=== PATIENT | male | born 1990 | race Hispanic/Latino ===

== ENCOUNTER 2016-04-03 09:37 | Emergency (ER) ==
[2016-04-03 09:44] VITALS: BP 130/73
[2016-04-03] MEDS ORDERED: DECADRON IM ONE (11:00)
[2016-04-03] MEDS ORDERED: MOTRIN PO ONE (11:01)
--- NOTE | 2016-04-03 11:08 | PROVIDER DOCUMENTATION ---
HPI-General Adult - General Chief Complaint: Flu Symptoms Stated Complaint: N/V/D FEVER Time Seen by Provider: 04/03/16 10:51 Source: patient Allergies/Adverse Reactions: Patient Allergies Allergy/AdvReac Type Severity Reaction Status Date / Time No Known Allergies Allergy Verified 02/22/16 13:12 - History of Present Illness -Gen Adult Nature of Presenting Problems: Pt is 25 y/o M presents to the ED with F and cough. Pt states the cough has been present for two days. Pt states work sent him home due to cough and F Location of Pain/Injury: reports: generalized Pain Radiation: reports: no radiation Quality of Pain: reports: aching Severity: reports: mild Onset/Duration: reports: 2 days ago Timing: reports: still present, intermittent Context/Activities at Onset: reports: light activity Modifying Factors: improves with: nothing Associated Symptoms: reports: cough, fever/chills (F), muscle aches. denies: loss of appetite, nausea, shortness of breath, weakness Similar Symptoms Previously?: Yes Recently seen or treated by another doctor?: No Review of Systems - Adult - REVIEW OF SYSTEMS - ADULT Constitutional: reports: fever. denies: chills, fatique Eyes: denies: blurred vision, double vision Ears, Nose, Mouth & Throat: denies: ear pain, nose pain, throat pain Cardiovascular: denies: chest pain, heart murmur, irregular heart rate Respiratory: reports: cough. denies: shortness of breath, wheezing Gastrointestinal: denies: abdominal pain, diarrhea, difficulty swallowing, nausea, vomiting Genitourinary: denies: dysuria, hematuria Musculoskeletal: reports: muscle aches. denies: bone pain, back pain, joint pain, neck pain Integumentary: denies: hives, itching Neurological: denies: dizziness/vertigo, headache/migraines Psychiatric: reports: no symptoms reported Endocrine: reports: no symptoms reported Hematologic/Lymphatic: reports: no symptoms reported Allergic/Immunologic: reports: no symptoms reported All Other Systems: Reviewed and Negative Past History - Adult - PAST MEDICAL HISTORY-ADULT Review of Records: reports: Nursing Assessment Review, Medications Reviewed, Social history reviewed & non-contributory. Major Childhood Illnesses: reports: denies history Cardiovascular: reports: denies history Respiratory: reports: denies history Gastrointestinal: reports: denies history Obstetrical/Gynecological: reports: denies history Genitourinary: reports: denies history Musculoskeletal: reports: denies history Neurological: reports: denies history Endocrine/Immune: reports: denies history Other Conditions: reports: denies history - PRIOR SURGERIES/PROCEDURES Surgical/Procedure History: reports: none - IMMUNIZATION STATUS Childhood Immunizations: See Nurse Assessment Flu Vaccine: See Nurse Assessment - FAMILY HISTORY Family History: reviewed, not pertinent - SOCIAL HISTORY Smoking: cigarettes, less than 1 pack/day Provider spent 3-5 mins advising pt. on dangers of tobacco.: Discussed manners to quit use, and f/u contacts for add'l counseling. Substance Use: denies Living Situation: family Physical Exam-General - PHYSICAL EXAM-ADULT Initial Vital Signs Reviewed: Yes - CONSTITUTIONAL General Appearance: appears well, alert, no apparent distress - EYES Eyes: PERRL/EOMI, pink conjunctivae - HEAD, EARS, NOSE, MOUTH & THROAT HENMT: normocephalic/atraumatic, moist mucous membranes, normal ENT inspection - NECK Neck: non-tender, full range of motion, supple, normal inspection - RESPIRATORY Respiratory: chest non-tender, lungs clear, normal breath sounds, rhonchi - CARDIOVASCULAR Cardiovascular: normal peripheral pulses, regular rate, rhythm, no edema - GASTROINTESTINAL (ABDOMEN) Abdominal Exam: normal bowel sounds, non tender, soft - LYMPHATIC Lymphatic: no adenopathy - MUSCULOSKELETAL Back Exam: normal inspection, no CVA tenderness, no vertebral tenderness Extremity: normal range of motion, non-tender, normal gait - SKIN Integumentary: normal color, normal turgor, warm/dry - NEUROLOGIC Neurologic: oncology pharmacist II-XII nml as tested, grossly normal, no motor/sensory deficits - PSYCHIATRIC Psych/Mental Status: normal mood/affect, normal thought content, normal thought process, oriented x 3 Progress - PLAN OF CARE/RESULTS Progress/Plan/Lab Results: Laboratory Tests 04/03/16 04/03/16 09:45 09:45 Influenza A (Rapid) NEGATIVE Influenza B (Rapid) NEGATIVE Group A Strep Rapid NEGATIVE Orders Category Date Time Status CHEST-2 VIEWS [RAD] Stat Exams 04/03/16 10:[address] Stat Lab 04/03/16 09:[address] Stat Lab 04/03/16 09:45 Completed Dexamethasone [Decadron] Med 04/03/16 11:00 Discontinued 10 mg IM NOW ONE Ibuprofen [Motrin] Med 04/03/16 11:01 Discontinued 800 mg PO NOW ONE Vital Signs - 24 hr 04/03/16 09:40 Temperature 101.7 F H Pulse Rate 85 Respiratory 18 Rate Blood Pressure 130/73 O2 Sat by Pulse 100 Oximetry - XRAY 1 XRAY: Bilateral XRAY Study: Chest Impression: Normal XRAY Interpretation: nad Departure - Departure Time of Disposition Order: 11:07 DIAGNOSIS: Bronchitis Disposition: HOME 01 Certified Medical Emergency: Emergent Condition: Good Additional Instructions: Take medication as prescribed. Wait 3 days before filling antibiotics to see if symptoms resolve on their own. Follow up with your primary care provider. Return to the ER for any new or worsening symptoms. ED Follow Up Instructions: You have been treated by a care provider in the Emergency Department. These instructions are being provided to you so you can have an understanding of how to care for yourself upon discharge. Upon discharge from the Emergency Department, you are responsible for making arrangements for follow-up care by a physician of your choice. Take all prescribed medications as directed. Return to the Emergency Department immediately for any new or worsening symptoms. You may call the Physician Referral phone number at [phone] to obtain a list of Physicians who are taking new patients. Prescriptions: Guaifenesin/D-Methorphan Hb/PE [Deconex Dmx Tablet] 1 each PO TID #30 tablet Cephalexin [Keflex] 500 mg PO Q6HR #28 capsule Ibuprofen [Motrin] 800 mg PO Q8H PRN PRN #20 tablet PRN Reason: inflammation Referrals: None,PCP [Primary Care Provider] - Attestation - Scribe Verification/Attestation Scribe:: Eryn Burt Acting as Scribe for:: Kenny Lovell Scribe documention review:: This chart was documented by a scribe and accurately reflects the service the provider performed and the decisions made by the provider.
--- NOTE | 2016-04-03 11:14 | Diag Imaging Result Document ---
PROCEDURE NAME: CHEST-2 VIEWS - 04/03/2016 TWO VIEWS OF THE CHEST: FINDINGS: There is no evidence of acute cardiac or pulmonary disease. There are no previous studies. IMPRESSION: No acute disease.
== END 2016-04-03 11:26 | disposition home or self-care (01) ==
LOC: P.ED 09:37
DX: J40 Bronchitis, not specified as acute or chronic (principal); R50.9 Fever, unspecified; R05 Cough; M79.1 Myalgia; F17.210 Nicotine dependence, cigarettes, uncomplicated; Z71.6 Tobacco abuse counseling
CPT/HCPCS: 71020; 87081; 87430; 87804; 96372